=== PATIENT | female | born 2000 | race African-American/Black ===

== ENCOUNTER 2018-11-09 21:56 | Emergency (ER) | payer SELFPAY ==
[2018-11-09 22:03] VITALS: TEMP 99.3; BMI 39.6
[2018-11-10] MEDS ORDERED: FAMOTIDINE 20 MG/50 ML IVPB 20 MG/50 ML MG IVPB ONE ×2 (00:01→00:34)
[2018-11-10] MEDS ORDERED: SODIUM CHLORIDE 0.9% 1000 ML INFUS.BAG IV ONE (00:01)
[2018-11-10] MEDS ORDERED: ACETAMINOPHEN 1000 MG/100 ML VIAL (NON FORMULARY) IVPB ONE (00:01)
--- NOTE | 2018-11-10 00:25 | PDOC ---
Documentation entered by Gloria Elizabeth SCRIBE, acting as scribe for Lida Padilla DO. Lida Padilla DO: This documentation has been prepared by the Clara frey Xhesika, SCRIBE, under my direction and personally reviewed by me in its entirety. I confirm that the documentation accurately reflects all work, treatment, procedures, and medical decision making performed by me. History of Present Illness - General Chief Complaint: Pain Stated Complaint: FEVER Time Seen by Provider: 11/09/18 23:37 History Source: Patient, Parent(s) Exam Limitations: No Limitations - History of Present Illness Initial Comments: 11/10/18 00:16 The patient is a 17 year old female, with a significant PMH of percutaneous discectomy (Done by Dr. Ortega on 11/02/18) who presents to the emergency department with 1 day of subjective fevers, back pain, headache, belly pain and 10 episodes of diarrhea. The patient states she endorses diffuse belly pain worsened with deep breathing. The patient notes her headache is worsened when coughing and is relieved with Motrin. The patient states she took Motrin and Aleve this morning with relief of symptoms before recurring again. Patient notes her LMP was 10/13/18. The patient denies numbness or weakness down her leg. Denies urinary incontinence,chest pain, shortness of breath, and dizziness. Denies chills, nausea, vomiting, and constipation. Denies dysuria, frequency, urgency and hematuria. Allergies: NKA Past surgical history: percutaneous discectomy ( 11/02/18), and R knee Surgery. Past History - Past Medical History Allergies/Adverse Reactions: Allergies Allergy/AdvReac Type Severity Reaction Status Date / Time No Known Allergies Allergy Verified 11/09/18 22:03 COPD: No - Suicide/Smoking/Psychosocial Hx Smoking History: Never smoked Review of Systems - Review of Systems Able to Perform ROS?: Yes Comments:: 11/10/18 00:17 GENERAL/CONSTITUTIONAL: (+) subjective fever. No chills. No weakness. HEAD, EYES, EARS, NOSE AND THROAT: (+) headache. No change in vision. No ear pain or discharge. No sore throat. CARDIOVASCULAR: No chest pain or shortness of breath. RESPIRATORY: No cough, wheezing, or hemoptysis. GASTROINTESTINAL: (+) Diarrhea. No nausea, vomiting, or constipation. GENITOURINARY: No dysuria, frequency, or change in urination. MUSCULOSKELETAL: (+) back pain. (+) belly pain. No joint or muscle swelling or pain. No neck pain. SKIN: No rash NEUROLOGIC: No headache, vertigo, loss of consciousness, or change in strength/ sensation. ENDOCRINE: No increased thirst. No abnormal weight change. HEMATOLOGIC/LYMPHATIC: No anemia, easy bleeding, or history of blood clots. ALLERGIC/IMMUNOLOGIC: No hives or skin allergy. *Physical Exam - Vital Signs Last Vital Signs Temp Pulse Resp BP Pulse Ox 99.3 F 75 18 134/80 100 11/09/18 22:01 11/09/18 22:01 11/09/18 22:01 11/09/18 22:01 11/09/18 22:01 - Physical Exam Comments: 11/10/18 00:17 GENERAL: Awake, alert, and fully oriented, in no acute distress HEAD: No signs of trauma EYES: PERRLA, EOMI, sclera anicteric, conjunctiva clear ENT: Auricles normal inspection, hearing grossly normal, nares patent, oropharynx clear without exudates. Moist mucosa NECK: Normal ROM, supple, no lymphadenopathy, JVD, or masses LUNGS: Breath sounds equal, clear to auscultation bilaterally. No wheezes, and no crackles HEART: Regular rate and rhythm, normal S1 and S2, no murmurs, rubs or gallops ABDOMEN:(+) mild suprapbic tenderness. (+) Mild epigastric tenderness. Soft, normoactive bowel sounds. No guarding, no rebound. No masses SPINE: (+) R lateral low back incision site healing with 2 sutures. (+)mild tenderness over surgical site. No purulence palpated. No drainage from the site. EXTREMITIES:(+) 5/5 muscle strength of LLE. (+) 4/5 muscle strength of RLE. Normal range of motion, no edema. No clubbing or cyanosis. No cords, erythema, or tenderness NEUROLOGICAL: Cranial nerves II through XII grossly intact. Normal speech, normal gait ED Treatment Course - LABORATORY CBC & Chemistry Diagram: 11/10/18 00:15 11/10/18 00:15 - RADIOLOGY Radiology Studies Ordered: Category Date Time Status ABDOMEN & PELVIS CT WITH CONTR [CT] Stat CT Scan 11/10/18 00:00 Ordered CHEST PA & LAT [RAD] Stat Radiology 11/09/18 23:57 Ordered Medical Decision Making - Medical Decision Making 11/10/18 00:20 a/p: 17yo female presents ambulatory for eval of diarrhea, lower abd pain, and subjective fever since yesterday -pt is 1 week s/p percutaneous discectomy with Dr. Ortega in [place] - received iv and intra-disc cefazolin -states back pain is the same - no radiation of the pain, had some weakness to the RLE prior to the sx, and hasn't changed since -denies urinary complaints -dry cough yesterday -pt is afebrile in the ED -denies loss of bowel or bladder -denies vaginal complaints -denies new weakness or paresthesias -lungs cta on exam -will send labs, cxr, ua, ct abd/pelvis -pt with lower abd ttp on exam and mild epigastric - suspect epigastric pain is secondary to recent aleve and motrin use daily -last dose of motrin or aleve was early yesterday morning -no oral abx 11/10/18 00:23 suture site is c/d/i - no surrounding erythema, no drainage, no induration, mild tenderness at the site no signs/symptoms of acute cuade equina at this time discussed with Dr. Ortega -[phone] - low risk for infection given the surgery, if concern for spinal epidural abscess or site infection would expect new focal neuro findings, high fever 11/10/18 01:10 no elevated wbc labs reviewed 11/10/18 01:32 cxr negative 11/10/18 01:33 no uti 11/10/18 17:01 pt was signed out the oncoming ED physician pending the ct read and further eval of her pain *DC/Admit/Observation/Transfer Diagnosis at time of Disposition: Colitis, Nonspecific mesenteric adenitis - Discharge Dispostion Disposition: HOME Condition at time of disposition: Stable Decision to Admit order: No - Referrals Referrals: Leonides Nagy MD [Staff Physician] - - Patient Instructions Printed Discharge Instructions: DI for Colitis, DI for Mesenteric Adenitis- Adult Additional Instructions: As discussed follow-up with your surgeon in the morning and return immediately to the nearest hospital if your fever worsens, you develop return of back pain or any weakness or numbness to her arms or legs. These can be signs of a progressive and potentially life-threatening condition. Otherwise follow-up with gastroenterology as well for further evaluation as well as her primary care physician. A urine culture has been sent, you will be contacted if you require further intervention. - Post Discharge Activity - Attestations Physician Attestion: 11/10/18 17:02 I, Dr. Lida Padilla, DO, attest that this document has been prepared under my direction and personally reviewed by me in its entirety. I further attest, that it accurately reflects all work, treatment, procedures and medical decision -making performed by me.
[2018-11-10 00:31] LABS: BASO % 0.4 % (0-2.0); EOS % 1.1 % (0-4.5); HEMATOCRIT 37.3 % (32.4-45.2); HEMOGLOBIN 12.3 GM/dL (10.7-15.3); LYMPH % 15.4 % (8-40); MCH 29.7 pg (25.7-33.7); MCHC 32.9 g/dl (32.0-36.0); MEAN CELL VOLUME 90.3 fl (80-96); MEAN PLT VOLUME 9.6 fl (7.5-11.1); MONO % 9.6 % (3.8-10.2); NEUT % 73.5 % (42.8-82.8); PLATELET COUNT 230 K/MM3 (134-434); RBC 4.13 M/mm3 (3.60-5.2); RDW 14.5 % (11.6-15.6); WHITE BLOOD COUNT 8.3 K/mm3 (4.0-10.0)
[2018-11-10] MEDS ORDERED: ACETAMINOPHEN INJECTION 100 ML IVPB ONE (00:34)
[2018-11-10 00:55] LABS: ALBUMIN 3.6 g/dl (3.4-5.0); BILIRUBIN,TOTAL 0.1 mg/dL (0.2-1); BLOOD UREA NITROGEN 8.3 mg/dL (7-18); CALCIUM 9.3 mg/dL (8.5-10.1); CREATININE 0.8 mg/dL (0.55-1.3); POTASSIUM 4.3 mmol/L (3.5-5.1); TOT PROT 7.8 g/dl (6.4-8.2)
[2018-11-10 01:29] LABS: EPI CELLS 16.7 /HPF (0-5/HPF); HYALINE CASTS 4 /lpf (0-8); PH,URINE 5.5 (5.0-8.0); URINE APPEARANCE CLOUDY; URINE BACTERIA 517.1 /hpf (NEGATIVE); URINE BILIRUBIN NEGATIVE (NEGATIVE); URINE COLOR YELLOW; URINE GLUCOSE (UA) NEGATIVE (NEGATIVE); URINE KETONE NEGATIVE (NEGATIVE); URINE LEUK ESTERASE NEGATIVE (NEGATIVE); URINE NITRITE NEGATIVE (NEGATIVE); URINE PROTEIN NEGATIVE (NEGATIVE); URINE RBC 12 /hpf (0-4); URINE UROBILINOGEN 0.2 mg/dL (0.2-1.0); URINE WBC 4 /hpf (0-5)
[2018-11-10] MEDS ORDERED: KETOROLAC TROMETHAMINE 30 MG/1 ML VIAL IVPUSH ONE (02:00)
[2018-11-10] MEDS ORDERED: KETOROLAC TROMETHAMINE 30 MG/1 ML VIAL ONE (02:38)
--- NOTE | 2018-11-10 03:19 | PDOC ---
*Physical Exam - Vital Signs Last Vital Signs Temp Pulse Resp BP Pulse Ox 99.3 F 75 18 134/80 100 11/09/18 22:01 11/09/18 22:01 11/09/18 22:01 11/09/18 22:01 11/09/18 22:01 ED Treatment Course - LABORATORY CBC & Chemistry Diagram: 11/10/18 00:15 11/10/18 00:15 - ADDITIONAL ORDERS Additional order review: Laboratory Results 11/10/18 11/10/18 11/10/18 01:10 01:10 00:15 Sodium Potassium Chloride Carbon Dioxide Anion Gap BUN Creatinine Est GFR (CKD-EPI)AfAm Est GFR (CKD-EPI)NonAf Random Glucose Lactic Acid 0.9 Calcium Total Bilirubin AST ALT Alkaline Phosphatase Total Protein Albumin Urine Color Yellow Urine Appearance Cloudy Urine pH 5.5 Ur Specific [place] 1.026 Urine Protein Negative Urine Glucose (UA) Negative Urine Ketones Negative Urine Blood 2+ H Urine Nitrite Negative Urine Bilirubin Negative Urine Urobilinogen 0.2 Ur Leukocyte Esterase Negative Urine WBC (Auto) 4 Urine RBC (Auto) 12 Urine Casts (Auto) 4 U Epithel Cells (Auto) 16.7 Urine Bacteria (Auto) 517.1 Urine HCG, Qual Negative 11/10/18 00:15 Sodium 140 Potassium 4.3 Chloride 107 Carbon Dioxide 28 Anion Gap 4 L BUN 8.3 Creatinine 0.8 Est GFR (CKD-EPI)AfAm 123.87 Est GFR (CKD-EPI)NonAf 106.88 Random Glucose 87 Lactic Acid Calcium 9.3 Total Bilirubin 0.1 L AST 12 L ALT 14 Alkaline Phosphatase 77 Total Protein 7.8 Albumin 3.6 Urine Color Urine Appearance Urine pH Ur Specific [place] Urine Protein Urine Glucose (UA) Urine Ketones Urine Blood Urine Nitrite Urine Bilirubin Urine Urobilinogen Ur Leukocyte Esterase Urine WBC (Auto) Urine RBC (Auto) Urine Casts (Auto) U Epithel Cells (Auto) Urine Bacteria (Auto) Urine HCG, Qual 11/10/18 00:15 RBC 4.13 MCV 90.3 MCHC 32.9 RDW 14.5 MPV 9.6 Neutrophils % 73.5 Lymphocytes % 15.4 Monocytes % 9.6 Eosinophils % 1.1 Basophils % 0.4 - Medications Given in the ED: ED Medications Discontinued Medications Generic Name Dose Route Start Last Admin Trade Name Freq PRN Reason Stop Dose Admin Acetaminophen 1,000 mg 11/10/18 00:01 11/10/18 00:43 Ofirmev Injection - IVPB 11/10/18 00:02 1,000 mg ONCE ONE Administration Famotidine/Sodium Chloride 20 mg in 50 mls @ 100 mls/hr 11/10/18 00:01 00:43 Pepcid 20 Mg Premixed Ivpb - IVPB 11/10/18 00:30 100 mls/hr ONCE ONE Administration Ketorolac Tromethamine 30 mg 11/10/18 02:00 11/10/18 02:46 Toradol Injection - IVPUSH 11/10/18 02:01 30 mg ONCE ONE Administration Sodium Chloride 1,000 ml 11/10/18 00:01 11/10/18 00:42 Normal Saline - IV 11/10/18 00:02 1,000 ml ONCE ONE Administration Medical Decision Making - Medical Decision Making 11/10/18 03:15 17-year-old female status post endoscopic spinal surgery approximately 9 days ago with fever as well as abdominal pain and diarrhea Case signed out to me pending CT scan results and reevaluation Previous chart reviewed, case was discussed with the surgeon by the previous emergency department physician who felt patient was at low risk for epidural abscess In reevaluation she has ambulated in the emergency department, she remains to be neuro in tact and has no active back pain CT scan of the abdomen and pelvis shows thickened ascending and transverse colon likely colitis with right lower quadrant mesenteric lymph node enlargement Patient and mother states she has an appointment for suture removal at 11:00 at the surgeon's office They were offered observation here but would prefer to go home and have agreed to return should any worsening symptoms develop, most specifically return of back pain, worsening fever or leg weakness/numbness They were advised that should the patient develop an epidural abscess this is a condition that can progress rapidly and put her at risk for permanent neurological damage as well as They have both verbalized understanding and will be discharged home In regards to the urinalysis results, patient has no specific urine symptoms at this time, a urine culture will be sent for further evaluation *DC/Admit/Observation/Transfer Diagnosis at time of Disposition: Colitis, Nonspecific mesenteric adenitis - Discharge Dispostion Disposition: HOME Condition at time of disposition: Stable Decision to Admit order: No - Referrals Referrals: Leonides Nagy MD [Staff Physician] - - Patient Instructions Printed Discharge Instructions: DI for Colitis, DI for Mesenteric Adenitis- Adult Additional Instructions: As discussed follow-up with your surgeon in the morning and return immediately to the nearest hospital if your fever worsens, you develop return of back pain or any weakness or numbness to her arms or legs. These can be signs of a progressive and potentially life-threatening condition. Otherwise follow-up with gastroenterology as well for further evaluation as well as her primary care physician. A urine culture has been sent, you will be contacted if you require further intervention. - Post Discharge Activity - Attestations Physician Attestion: 11/10/18 03:22 I, Dr Ashley Caballero, attest that this document has been prepared under my direction and personally reviewed by me in its entirety. I further attest, that it accurately reflects all work, procedures and medical decision making performed by me.
[2018-11-10 04:04] VITALS: BP 131/83; PULSE 72
== END 2018-11-10 03:55 | disposition home or self-care (01) ==
LOC: JER 21:56
PROC: 3E0333Z Introduction of Anti-inflammatory into Peripheral Vein, Percutaneous Approach (ICD-10-PCS; principal; 2018-11-09)
PROC: 3E033NZ Introduction of Analgesics, Hypnotics, Sedatives into Peripheral Vein, Percutaneous Approach (ICD-10-PCS; 2018-11-09)
PROC: 3E0337Z Introduction of Electrolytic and Water Balance Substance into Peripheral Vein, Percutaneous Approach (ICD-10-PCS; 2018-11-09)
PROC: 3E033GC Introduction of Other Therapeutic Substance into Peripheral Vein, Percutaneous Approach (ICD-10-PCS; 2018-11-09)
DX: K52.9 Noninfective gastroenteritis and colitis, unspecified (principal); I88.0 Nonspecific mesenteric lymphadenitis
CPT/HCPCS: 36415; 71046-TC-FY; 74177-TC; 80053; 81003; 83605; 84703; 85025; 87086; 99283-25; J0131; J7030